=== PATIENT | female | born 1970 | race American Indian/Alaskan Native ===

== ENCOUNTER 2017-10-10 09:18 | Outpatient (CLI) | payer BC ==
--- NOTE | 2017-10-10 10:44 | XRay Report ---
XRAY RIGHT SHOULDER THREE VIEWS: 10/10/17 09:18:00 CLINICAL: Right shoulder pain. FINDINGS: Normal glenohumeral joint and normal AC joint. No fracture or dislocation. No bone lesion. Normal soft tissues. IMPRESSION: Normal.
== END 2017-10-10 09:19 | disposition home or self-care (01) ==
LOC: SPVIMAG 09:18
PROVIDERS: ATTEND Orthopaedic Surgery
DX: M25.511 Pain in right shoulder (principal)